=== PATIENT | female | born 1940 | race Caucasian/White ===

== ENCOUNTER → 2021-01-18 | Outpatient (CLI) | payer MEDICARE ==
[~2021-01-18] MED LIST: ASCO500T8 PO; ASPI-496 PO; ATOR10TA PO; ATOR20TA37 PO; CBD GUMMY PO; CHOL200024 PO; CHOL200074 PO; FISH1CAP PO; FOLI0.4T5 PO; LEVO50TA5 PO; LYSI500T25 PO; METH500T5 PO; MOEX15TA2 PO; MULT-642 PO; OMEP20CA9 PO; SUPER B COMPLEX PO; TELM80TA PO
[2021-01-18 12:53] LABS: ALANINE AMINOTRANSFERASE 36 U/L (12-78); ALBUMIN 3.7 g/dL (3.4-5.0); ANION GAP 4 mmol/L (5-15); CALCIUM 8.8 mg/dL (8.5-10.1); CHLORIDE 111 mmol/L (98-107)
[2021-01-18 12:58] LABS: ALKALINE PHOSPHATASE 75 U/L (45-117); BILIRUBIN,TOTAL 0.4 mg/dL (0.2-1.0); CREATININE 1.18 mg/dL (0.55-1.02); TOTAL PROTEIN 7.1 g/dL (6.4-8.2)
== END | disposition home or self-care (01) ==
LOC: STAR 11:01
PROVIDERS: ATTEND Orthopaedic Surgery Hand Surgery
DX: Z01.818 Encounter for other preprocedural examination (principal); G56.01 Carpal tunnel syndrome, right upper limb; I49.8 Other specified cardiac arrhythmias; Z20.822 Contact with and (suspected) exposure to COVID-19
CPT/HCPCS: 36415; 80053; 93005; U0003; U0005

== ENCOUNTER 2021-01-23 06:26 | Day surgery (SDC) | payer MEDICARE ==
[~2021-01-23] VITALS: Ht 157.5 cm; Wt 59.0 kg
[2021-01-23 06:56] VITALS: BP 146/76
[2021-01-23] MEDS ORDERED: CHLORHEXIDINE 15 ML UDC PO ONE (07:00)
[2021-01-23] MEDS ORDERED: LACTATED RINGERS 1,000 ML IV SCH (07:00)
[2021-01-23] MEDS ORDERED: MIDAZOLAM 1 MG/ML, 2ML ONE (07:43)
[2021-01-23] MEDS ORDERED: FENTANYL PF 100 MCG/2ML ONE (07:44)
[2021-01-23] MEDS ORDERED: BUPIVACAINE/PF 0.5% ONE (08:07)
[2021-01-23] MEDS ORDERED: LIDOCAINE-MPF 1%, 5ML ONE (08:07)
[2021-01-23] MEDS ORDERED: EPINEPHRINE 1 MG/ML, 1ML ONE (08:08)
[2021-01-23] MEDS ORDERED: PROPOFOL 10 MG/ML, 20ML ONE (08:33)
[2021-01-23] MEDS ORDERED: ONDANSETRON 2MG/ML, 2ML ONE (08:33)
[2021-01-23] MEDS ORDERED: OXYcodone 5 MG/5 ML ORAL.SOL UDC PO PRN (09:00)
[2021-01-23] MEDS ORDERED: LABETALOL 5MG/ML, 20ML IV PRN (09:00)
[2021-01-23] MEDS ORDERED: ACETAMINOPHEN 325 MG TABLET PO PRN (09:00)
[2021-01-23] MEDS ORDERED: FENTANYL PF 100 MCG/2ML IV PRN (09:00)
[2021-01-23] MEDS ORDERED: PROMETHAZINE 25 MG/ML, 1ML IVPush PRN (09:00)
[2021-01-23] MEDS ORDERED: MIDAZOLAM 1 MG/ML, 2ML IV PRN (09:00)
== END 2021-01-23 10:00 | disposition home or self-care (01) ==
LOC: OUT 06:26
PROVIDERS: ATTEND Orthopaedic Surgery Hand Surgery
DX: G56.01 Carpal tunnel syndrome, right upper limb (principal); I10 Essential (primary) hypertension; E78.5 Hyperlipidemia, unspecified; E03.9 Hypothyroidism, unspecified; F32.9 Major depressive disorder, single episode, unspecified; F41.9 Anxiety disorder, unspecified; Z79.82 Long term (current) use of aspirin; Z79.890 Hormone replacement therapy; Z79.891 Long term (current) use of opiate analgesic; Z79.899 Other long term (current) drug therapy; Z87.891 Personal history of nicotine dependence; Z88.2 Allergy status to sulfonamides; Z88.8 Allergy status to other drugs, medicaments and biological substances
CPT/HCPCS: 29848; J0171; J2250; J2405; J2704; J3010; J7120